=== PATIENT | female | born 1955 | race Caucasian/White ===

== ENCOUNTER → 2017-01-23 | Day surgery (SDC) | payer OTHER ==
[~2017-01-23] MED LIST: ASPI81TA82 PO; BUPIVACAINE HCL PF 0.75% 30 ML VIAL ONE; CLIN150 PO; CLOP75 PO; GLIM4TAB PO; INSU100V SQ; LACTATED RINGER'S 1000 ML INJ 1,000 ML ONE; LIDOCAINE 1.5%/EPINEPHrine 1:200,000 PF SOLN 30 ML AMP ONE; LISI-360 PO; LORTA5 PO; METF-324 PO; MIDAZOLAM HCL 5 MG/ML VIAL (1 ML) ONE; PROPOFOL 200 MG/20 ML AMP IV ONE; ROSU10 PO; SULF-154 PO; XANA0.5T PO; ceFAZolin 2 GM PREMIX 50 ML ONE
--- NOTE | 2017-01-24 10:31 | MP ---
cc: STEVEN ENRIQUEZ M.D. DATE OF SURGERY 01/23/2017 PREOPERATIVE DIAGNOSIS 1. Right shoulder full-thickness supraspinatus rotator cuff tear. 2. Right shoulder superior labral tear. 3. Right shoulder biceps abnormality. 4. Right shoulder abnormality subscapularis tendon. 5. Right shoulder anterior inferior ganglion cyst. POSTOPERATIVE DIAGNOSIS 1. Right shoulder full-thickness supraspinatus rotator cuff tear. 2. Right shoulder superior labral tear. 3. Right shoulder biceps abnormality. 4. Right shoulder abnormality subscapularis tendon. 5. Right shoulder anterior inferior ganglion cyst. 6. Anterior labral tear. PROCEDURE 1. Right shoulder arthroscopic rotator cuff repair using [employer] speed bridge technique. 2. Right shoulder arthroscopic extensive debridement of superior labrum, anterior labrum, biceps tendon, undersurface subscapularis rotator cuff partial tear and inferior ganglion cyst debridement. 3. Right shoulder arthroscopic subacromial decompression. ANESTHESIA Interscalene block and general SURGEON Steven Enriquez MD POWER BRAKE OPERATOR SURGEON RICK Lynne ESTIMATED BLOOD LOSS Minimal DRAINS None SPECIMEN None COMPLICATIONS None known. INDICATION Ira Davison is a 61-year-old female with debilitation associated with her right shoulder and multiple abnormalities on MRI. She now presents for surgical intervention. The risks and benefits were thoroughly discussed and a detailed informed consent was obtained. PROCEDURE The patient was brought to the operating room. She was placed under interscalene block in the preop holding in the operating room and general anesthesia. She was turned to the lateral decubitus position with the right shoulder up. The right shoulder was prepped and draped in the usual sterile fashion. It should be noted that the dam tender assistant, Nir Borjas, is advanced registered nurse practitioner. His skill set was medically necessary for the performance of the operations. After a time-out was completed, we manisha out the bony landmarks of the shoulder and we made a posterior portal in the soft spot posteriorly. We reduced the blunt cannula into the shoulder joint and we looked upward to saw full thickness rotator cuff tear. We made our lateral based incision and brought the shaver through and then suctioned out the joint of some cloudy debris and then our first photograph showed the inferior labrum, posterior labrum, and articular surfaces of the glenoid and the humeral head. A second photograph showed significant fraying and tearing of the superior labrum, the base of the biceps tendon and the anterior labrum. We proceeded to debride and smooth this back and then took a follow-up photograph here after this debridement was performed. We assessed the biceps tendon and it otherwise appeared intact. We looked upwards and photographed the rotator cuff from underneath and then debrided from this angle and debrided to bleeding bone the footprint and came into the subacromial space and debrided and smoothed and contoured and brought to good quality tissue from superiorly and then photographed from this angle. The biceps tendon was noted to be stable. We went through the rotator cuff tear to evaluate the subscapularis as the MRI scan was reviewed prior to the operation and it did show undersurface abnormality and there was a partial undersurface tear which represented a 20-25% tear but not full-thickness tear and it was not greater than 50% so we debrided and smoothed this area and then proceeded with our planning for the repair and we proceeded with a standard [employer] speed bridge technique which anatomically brought the rotator cuff tissue down to the bleeding footprint and we photographed this from posteriorly and then we identified our anterior acromial spur and performed anterior acromionectomy and then took the follow-up photograph there showing that we now have it flattened down to bleeding bone. Then we visualized from the direct lateral portal and photographed showing how solid the repair was. We then inspected further anteriorly where we had noted a ganglion cyst to be present and came along underneath the short head of the biceps tendon and then identified a cystic region which was debrided from its superior aspect, but not fully down to where the nerve was. Hemostasis was very good. We had taken our final photographs. We obtained good hemostasis and then closed with absorbable sutures. Steri-Strips applied. Sterile dressing applied. The patient was awoken and returned to the recovery room in stable condition. MD ALIA Rodriguez/TUCKER /2:58 PM /10:20 AM
== END | disposition home or self-care (01) ==
LOC: ESDC 10:24
PROVIDERS: ATTEND Orthopaedic Surgery Sports Medicine
DX: M75.121 Complete rotator cuff tear or rupture of right shoulder, not specified as traumatic (principal); S43.431A Superior glenoid labrum lesion of right shoulder, initial encounter; M67.411 Ganglion, right shoulder; E11.9 Type 2 diabetes mellitus without complications; Z79.4 Long term (current) use of insulin
CPT/HCPCS: 01630; 01991; 29823; 29826; 29827; 64417; 82948; C1713; J0690; J2250; J7120